=== PATIENT | female | born 1940 | race Caucasian/White ===

== ENCOUNTER 2025-07-30 15:15 | Emergency (ER) | payer MEDICARE, SELFPAY ==
[2025-07-30 16:18] VITALS: BP 157/57; PULSE 69; RESP 19; TEMP 36.7; O2SAT 98; BMI 20.7
--- NOTE | 2025-07-30 18:26 | XR_ITS ---
PROCEDURE INFORMATION: Exam: XR Right Hand Exam date and time: 07/30/2025 7:04 PM Age: 85 years old Clinical indication: Injury or trauma; Other: R dog bite; Hand; Right TECHNIQUE: Imaging protocol: Radiologic exam of the right hand. Views: 1 or 2 views. Total images: 2 COMPARISON: No relevant prior studies available. FINDINGS: Bones/joints: Osteopenia. No acute fracture or joint dislocation. 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 Additional moderate degenerative changes scattered interphalangeal joints. Severe degenerative change 1st carpometacarpal joint and STT joint of the wrist. Soft tissues: Mild soft tissue swelling. No radiopaque foreign body. IMPRESSION: 1. No acute osseous abnormality. 2. Chronic findings. 3. Mild soft tissue swelling.
--- NOTE | 2025-07-30 18:34 | PC.NURSE ---
Bandage cut off patient finger to check dog bite. patient soaking hand in hibiclense
--- NOTE | 2025-07-30 18:44 | ED_ITS ---
<Statement entered by aKy Irwin DO - 07/30/25 23:05> I was consulted by the SANDRA, and we discussed the complexity of problems being addressed. I approve the treatment and management plan for this patient's care in the emergency department, thus performing a substantial portion of the medical decision making. Kay Irwin DO Discharge Plan Disposition Patient Disposition: Home, Self-Care Prescriptions Prescriptions: New amoxicillin-pot clavulanate 875-125 mg tablet 1 tab PO BID 7 Days Qty: 14 0RF No Action calcium carbonate 1,000 mg tablet PO cholecalciferol (vitamin D3) 50 mcg (2,000 unit) capsule 50 mcg PO DAILY alendronate 70 mg tablet 70 mg PO QWEEK 90 Days Qty: 13 3RF amlodipine 5 mg tablet 5 mg PO DAILY 90 Days Qty: 90 0RF levothyroxine [Synthroid] 50 mcg tablet 50 mcg PO DAILY 90 Days Qty: 90 0RF rosuvastatin 10 mg tablet 10 mg PO DAILY 90 Days Qty: 90 0RF Referrals Follow up/Referrals: Karrie Acuña APRN [Primary Care Provider, Family Practice] - See instructions Activity Restrictions/Add. Instructions Additional Instructions/Restrictions: Today you were evaluated in the emergency dept after a dog bite occurred on your right hand. You were given a tetanus vaccination and 1 dose of your antibiotic in the emergency department. You were given hydrocodone for pain control. You have a prescription for antibiotic sent electronically to [facility]. Please pick this up and take your first dose tomorrow. It is very important that you monitor the dog bite closely for signs and symptoms of infection including redness, drainage, warmth, increasing pain. If any of these occur, you need to return to the ED immediately. Otherwise, please follow-up with your primary care provider within 48 hours. Keep the area clean, open to air and dry. Clinical Impressions Clinical Impression: Dog bite Instructions Patient Instructions: Animal Bites Print Language Print Language: Malaysian Discharge ED Provider: Kay Irwin General Adult HPI General Chief complaint: Animal Bite Stated complaint: Dog bite 07/30/25 11:00 right hand Time Seen by Provider: 07/30/25 18:14 Mode of Arrival: Ambulatory Source of Information: Patient Description of Symptoms (Recalled from ER Triage Doc. by RN): pt presents to ED with c/o animal bite. pt reports bite to right index finger and palm of hand. approx 11 am today. pt reports unknown hx of tetanus. dog was family owned and up to date on vaccines. History of Present Illness HPI narrative: patient is an 85-year-old female who presents to the ED after being bitten by the family dog on her right index finger. Patient states the dog was resting when she startled it, bit her but immediately let go. Patient states the dog's vaccinations are up-to-date. Patient's tetanus shot is not up-to-date within the past 5 years. Related Data Home Medications ?Medication ?Instructions ?Recorded ?Confirmed calcium carbonate 1,000 mg tablet mg PO 05/20/2507/17 cholecalciferol (vitamin D3) 50 50 mcg PO DAILY 07/17/25 mcg (2,000 unit) capsule Previous Rx's ?Medication ?Instructions ?Recorded alendronate 70 mg tablet 70 mg PO QWEEK 90 days #13 t abs 05/20/25 amlodipine 5 mg tablet 5 mg PO DAILY 90 days #90 ta bs 07/01/25 levothyroxine 50 mcg tablet 50 mcg PO DAILY 90 days #9 0 tabs 07/01/25 (Synthroid) rosuvastatin 10 mg tablet 10 mg PO DAILY 90 days #90 t abs 07/01/25 amoxicillin 875 mg-potassium 1 tab PO BID 7 days #14 t abs 07/30/25 clavulanate 125 mg tablet Allergies Allergy/AdvReac Type Severity Reaction Status Date / Time propranolol (From Inderal [place]) Allergy Intermediate Drowsy Verified 07/17/25 10:44 Anesthetics - Amide Type - AdvReac Intermediate Nausea Verified 07/17/25 10:44 Select A prednisone AdvReac Nausea Verified 07/17/25 10:44 [facility] Disclaimer: The information contained in this section may have been updated after the patient was seen, as this information can be updated by other users. Medical History Restless legs Dry eyes Hypothyroidism Hypertension Hyperlipidemia Mitral valve prolapse Surgical History Previous back surgery Tubal ligation status Family History Other Cancer Coronary artery disease Social History Smoking Status: Never smoker alcohol intake: never current occupational status: retired Travel in the last 8 weeks?: Inside the [place] Have you lived/traveled outside [place] in past 30 days?: No Contact w/someone who lives/traveled outside [place] past 30 days?: No Exposure to someone with infectious disease in past 14 days?: No Do you have a fever (greater than 100.4 F or 38 C)?: No Have you tested positive for COVID-19?: No Exposed to someone with COVID-19 in past 14 days?: No Do you have a sore throat?: No Do you have a cough?: No Do you have any weakness?: No Do you have any diarrhea?: No Are you experiencing any unusual bleeding?: No Do you have any muscle aches/pain?: No Do you have any abdominal pain?: No Are you experiencing loss of taste or smell?: No Other Medical History Have you received the Pneumonia Vaccine: Yes ROS Obtained: Yes Systems reviewed as appropriate & no additional complaints except as documented Physical Exam General General appearance: alert Eye Eye exam: Present PERRL Chest Chest inspection: Present normal inspection Respiratory Respiratory exam: Present normal lung sounds bilaterally Cardiovascular Cardiovascular exam: Present regular rate Neurological Exam Neurological exam: Present alert and oriented X3 Skin Skin exam: Present other (2 small lacerations on anterior R index finger ) Medical Decision Making Medical Records Screening: Per USPSTF and CDC recommendations, given the prevalence of disease in our region, it is our hospital?s policy to screen for HIV and viral Hepatitis for all patients aged 18 and over and those with ongoing risk factors. Kvng Inquiry Pt receiving controlled substance: No Vital Signs: 07/30/25 16:18 07/30/25 20:28 Temperature 98.0 F 97.9 F Temperature Source Oral Oral Pulse Rate 65 Pulse Rate [Left Radial] 69 Respiratory Rate 19 16 Blood Pressure 139/74 Blood Pressure [Right Arm] 157/57 H Blood Pressure Mean [Right Arm] 90 02 Sat by Pulse Oximetry 98 Oxygen Delivery Method Room Air Room Air Orders (Tests/Meds): ED MEDICATIONS Discontinued Medications Generic Name Dose Route Start Last Admin Trade Name Freq PRN Reason Stop Dose Admin Hydrocodone Bitart/Acetaminophen 1 tab 07/30/25 18:44 07/30/25 19:49 Hydrocodone/Apap 5/325 Mg Tablet PO 07/30/25 18:45 1 tab ONCE ONE Administration Amoxicillin/Clavulanate Potassium 1 each 07/30/25 18:38 07/30/25 19:48 Amoxicillin/Clavulanate Potassium 875/125mg Tablet PO 07/30/25 18:39 1 each ONCE ONE Administration Tetanus/Reduced Diphtheria/Acell Pertussis 0.5 ml 07/30/25 18:26 07/30/25 19: 49 Tet/Diphth/Pert-Adult 0.5ml Syringe IM 07/30/25 18:27 0.5 ml .ONCE ONE Administration ORDERS Category Date Time Status Hand XR right 2 views [XR hand RT 2V] Stat Exams 07/30/25 18:26 Completed HIV Combo Routine Lab 07/30/25 16:22 Ordered Hepatitis C Ab Qual. W/ RFX Routine Lab 07/30/25 16:22 Ordered Medical Decision Narrative: In summary, patient is an 85-year-old female who presents to the ED after being bitten by the family dog on her right index finger. Patient states the dog was resting when she startled it, bit her but immediately let go. Patient states the dog's vaccinations are up-to-date. Patient's tetanus shot is not up-to-date within the past 5 years. She has not had anything for pain prior to arrival however has thoroughly cleaned the wound. Upon my initial evaluation, patient is alert and oriented, she is cooperative. She has 2 small lacerations on the anterior aspect of her right index finger. Patient has full ROM of index finger. Bleeding is controlled. Wound was soaked in Hibiclens and x-ray was obtained. Patient was given hydrocodone for pain and Augmentin antibiotic in case she could not get to the pharmacy tonight. Upon reassessment, patient's condition has improved. Her pain has improved. We applied a nonadherent to the laceration area and advised patient to remove this once she gets home from the hospital. We discussed keeping the dressing on the area tonight while leaving the ED, otherwise, should be open to air. We discussed signs and symptoms of infection. Discussed that she will need to follow-up with her PCP within 48 hours. Discussed importance of antibiotic adherence. Return to the ED for worsening of condition. Critical Care Critical Care Time Critical Care Time: No
[2025-07-30] MEDS: AMOXICILLIN/CLAVULANATE POTASSIUM 875/125MG TABLET 1 EACH PO (19:48)
[2025-07-30] MEDS: TET/DIPHTH/PERT-ADULT 0.5ML SYRINGE 0.5 ML IM (19:49)
[2025-07-30] MEDS: HYDROCODONE/APAP 5/325 MG TABLET 1 TAB PO (19:49)
[2025-07-30 20:28] VITALS: BP 139/74; PULSE 65; RESP 16; TEMP 36.6; O2SAT 97
== END 2025-07-30 20:30 | disposition home or self-care (01) ==
PROVIDERS: Emergency Provider Student in an Organized Health Care Education/Training Program; PCP Nurse Practitioner Family
DX: S61.250A Open bite of right index finger without damage to nail, initial encounter (principal); W54.0XXA Bitten by dog, initial encounter
CPT/HCPCS: 73120; 90471; 90715; 99283; 99284

== ENCOUNTER 2025-08-05 13:00 | Outpatient (CLI) | payer MEDICARE, SELFPAY ==
[2025-08-05 19:22] LABS: Hematocrit 31.8 % (37.0-47.0); Hemoglobin 10.7 g/dL (12.2-16.2); Immature Granulocytes % 0.1 %; Mean Corpuscular HGB Conc 33.6 g/dL (31.8-35.4); Mean Corpuscular Hemoglobin 31.4 pg (27.0-31.2); Mean Corpuscular Volume 93.3 fl (81-99); Nucleated Red Blood Cells % 0 %; Platelet Count 230 K/mm3 (142-424); Red Blood Count 3.41 M/mm3 (4.20-5.40); Red Cell Distribution Width-SD 43.2 fL; White Blood Count 6.7 K/mm3 (4.8-10.8)
[2025-08-05 20:05] LABS: Alanine Aminotransferase 20 U/L (12-78); Albumin Level 4.6 g/dl (3.5-5.0); Albumin/Globulin Ratio 1.7 (1.1-1.8); Alkaline Phosphatase 51 U/L (38-126); Anion Gap 15.1 mEq/L (5-15); Aspartate Amino Transferase 33 U/L (14-36); Bilirubin,Total 0.5 mg/dl (0.2-1.3); Blood Urea Nitrogen 20 mg/dl (7-17); Calcium 9.0 mg/dl (8.4-10.2); Carbon Dioxide 25 mmol/L (22.0-30.0); Chloride 99 mmol/L (98-107); Cholesterol 136 mg/dl (140-200); Creatinine,Serum 0.80 mg/dl (0.52-1.04); Estimated Glomerular Filt Rate 68 ml/min (>60); GFR (African American) 82 ML/MIN (>60); Globulin 2.7 g/dL (1.3-3.2); Glucose 80 mg/dl (74-100); HDL Cholesterol 85 mg/dl (40-60); Potassium 4.1 mmoL/L (3.5-5.1); Sodium 135 mmol/L (136-145); Total Protein,Serum 7.3 g/dl (6.3-8.2); Triglycerides 134 mg/dl (30-150)
[2025-08-05 20:22] LABS: 25-OH Vitamin D, Total 57.0 ng/mL (30-100)
[2025-08-05 20:37] LABS: Thyroid Stimulating Hormone 3.46 uIU/mL (0.465-4.68)
[2025-08-06 10:48] LABS: Iron 84 ug/dL (37-170)
[2025-08-06 11:01] LABS: Total Iron Binding Capacity 297 ug/dL (265-497)
[2025-08-06 11:25] LABS: Ferritin 51.8 ng/ml (11.1-264)
== END 2025-08-05 23:59 | disposition home or self-care (01) ==
LOC: LAB.DROPOF 08-06 12:10
PROVIDERS: PCP Nurse Practitioner Family; Visit Provider Nurse Practitioner Family
DX: M81.0 Age-related osteoporosis without current pathological fracture (principal); I10 Essential (primary) hypertension; Z11.4 Encounter for screening for human immunodeficiency virus [HIV]; D64.9 Anemia, unspecified
CPT/HCPCS: 80053; 80061; 82306; 82728; 83540; 83550; 84443; 85025; 87389